=== PATIENT | male | born 1965 | race Native Hawaiian/Other Pacific Islander ===

== ENCOUNTER 2016-08-29 09:03 | Inpatient (IN) | payer OTHER ==
[~2016-08-29] VITALS: Ht 162.6 cm; Wt 68.5 kg
[2016-08-29] VITALS (18 sets, daily range): BP systolic 75–128; BP diastolic 47–85; TEMP 97.6–98.4; Ht 162.6 cm; Wt 68.5 kg
[2016-08-29 09:39] LABS: PLATELET COUNT 309 K/uL (142-355)
[2016-08-29 09:55] LABS: POTASSIUM 4.3 mmol/L (3.6-5.2); SODIUM 141 mmol/L (136-145)
[2016-08-29] MEDS ORDERED: HYDR10TA47A PO (17:36)
[2016-08-29] MEDS ORDERED: Z-PAK PO (17:38)
[2016-08-30] VITALS (21 sets, daily range): BP systolic 89–134; BP diastolic 55–81; TEMP 98–98.3
[2016-08-30 04:37] LABS: PLATELET COUNT 240 K/uL (142-355)
[2016-08-30 04:47] LABS: POTASSIUM 3.3 mmol/L (3.6-5.2); SODIUM 140 mmol/L (136-145)
[2016-08-31] VITALS (24 sets, daily range): BP systolic 82–119; BP diastolic 53–83; TEMP 97.5–98.4
[2016-08-31 05:55] LABS: SODIUM 139 mmol/L (136-145)
[2016-08-31 06:08] LABS: PLATELET COUNT 230 K/uL (142-355)
[2016-09-01] VITALS (21 sets, daily range): BP systolic 74–123; BP diastolic 47–94; TEMP 97.4–98.6
[2016-09-01 06:45] LABS: PLATELET COUNT 212 K/uL (142-355)
[2016-09-01 07:01] LABS: POTASSIUM 3.8 mmol/L (3.6-5.2); SODIUM 142 mmol/L (136-145)
[2016-09-02 00:21] VITALS: BP 102/67; TEMP 98.5
[2016-09-02 04:00] VITALS: BP 101/69; TEMP 98.4
[2016-09-02 05:38] LABS: PLATELET COUNT 218 K/uL (142-355)
[2016-09-02 06:02] LABS: POTASSIUM 3.9 mmol/L (3.6-5.2); SODIUM 143 mmol/L (136-145)
[2016-09-02 07:58] VITALS: BP 100/64; TEMP 97.9
[2016-09-02 12:00] VITALS: BP 97/65; TEMP 98.3
[2016-09-02 16:00] VITALS: BP 101/68; TEMP 98.4
[2016-09-02 20:00] VITALS: BP 91/59; TEMP 97.9
[2016-09-03] VITALS: BP 94/62; TEMP 98.2
[2016-09-03 04:00] VITALS: BP 112/61; TEMP 98.2
[2016-09-03 07:55] LABS: PLATELET COUNT 196 K/uL (142-355)
[2016-09-03 08:00] VITALS: BP 90/48; TEMP 98.3
[2016-09-03 08:12] LABS: POTASSIUM 3.9 mmol/L (3.6-5.2); SODIUM 142 mmol/L (136-145)
[2016-09-03 12:16] VITALS: BP 102/54; TEMP 98.2
[2016-09-03 16:00] VITALS: BP 113/57; TEMP 98.4
[2016-09-03 20:00] VITALS: BP 104/62; TEMP 98.2
[2016-09-04] VITALS: BP 105/68; TEMP 98.3
[2016-09-04 03:49] LABS: PLATELET COUNT 226 K/uL (142-355)
[2016-09-04 03:58] LABS: POTASSIUM 3.9 mmol/L (3.6-5.2); SODIUM 144 mmol/L (136-145)
[2016-09-04 04:00] VITALS: BP 91/50; TEMP 97.9
[2016-09-04 08:00] VITALS: BP 101/70; TEMP 98.2
[2016-09-04 10:04] LABS: PARTIAL THROMBOPLASTIN TIME 62.6 SECONDS (24.5-33.6)
[2016-09-04 12:00] VITALS: BP 101/62; TEMP 97.9
[2016-09-04 16:00] VITALS: BP 103/63; TEMP 97.9
[2016-09-04 20:00] VITALS: BP 116/72; TEMP 98.3
[2016-09-05 00:16] VITALS: BP 111/76; TEMP 98
[2016-09-05 04:00] VITALS: BP 85/53; TEMP 98.1
[2016-09-05 05:58] LABS: POTASSIUM 3.9 mmol/L (3.6-5.2); SODIUM 142 mmol/L (136-145)
[2016-09-05 08:00] VITALS: BP 100/68; TEMP 97.8
== END 2016-09-05 12:05 | disposition home or self-care (01) | DRG 176 ==
LOC: ED 09:03 → ICU 12:12 → MED/SURG 09-01 21:09
PROVIDERS: Emergency Medicine; ADMIT Specialist
DX: I26.99 Other pulmonary embolism without acute cor pulmonale (principal); E87.2 Acidosis; A04.8 Other specified bacterial intestinal infections; G71.11 Myotonic muscular dystrophy; E87.6 Hypokalemia; K80.80 Other cholelithiasis without obstruction
CPT/HCPCS: 36415; 36600; 80053; 81000; 82550; 82805; 83735; 83880; 84484; 85027; 85379; 85610; 85730; 86318; 93005; 93306; 94760; 96365; 99284; J1644; J1885; J2270; J2405; J3490; Q9963